=== PATIENT | female | born 1965 | race Caucasian/White ===

== ENCOUNTER 2018-09-19 23:54 | Emergency (ER) | payer SELFPAY ==
[~2018-09-19] VITALS: Ht 157.5 cm; Wt 108.8 kg
[~2018-09-19 23:54] MED LIST: ASPI-630 PO; ATOR20TA58 PO; DICY10CA3 PO; HYDR12.572 PO; LISI-334 PO; NEO/5DRO EACHEYE; OMEP40CA5 PO; RANI150C PO
[2018-09-20] MEDS ORDERED: MORPHINE SULFATE 4 MG/ML DISP.SYRIN. IV/SQ PRN (00:15)
[2018-09-20] MEDS ORDERED: PANTOPRAZOLE 40 MG TABLET. PO ONE (00:30)
[2018-09-20] MEDS ORDERED: SUCRALFATE 1 GM TABLET. PO ONE (00:30)
[2018-09-20 00:47] LABS: BASO # 0.1 x10^3/uL (0.0-0.2); BASO % 1 % (0-3); EOS # 0.1 x10^3/uL (0.0-0.7); EOS % 1 % (0-3); HEMATOCRIT 42.1 % (36.0-47.0); HEMOGLOBIN 14.4 g/dL (12.0-15.5); LYMPH # 3.2 x10^3/uL (1.0-4.8); LYMPH % 35 % (24-48); MEAN CORPUSCULAR HEMOGLOBIN 29 pg (25-35); MEAN CORPUSCULAR HGB CONC 34 g/dL (31-37); MEAN CORPUSCULAR VOLUME 85 fL (79-100); MONO # 0.5 x10^3/uL (0.0-1.1); MONO % 6 % (0-9); NEUT # 5.4 x10^3uL (1.8-7.7); NEUT % 58 % (31-73); PLATELET COUNT 264 x10^3/uL (140-400); RED BLOOD COUNT 4.93 x10^6/uL (3.50-5.40); RED CELL DISTRIBUTION WIDTH 13.4 % (11.5-14.5); WHITE BLOOD COUNT 9.2 x10^3/uL (4.0-11.0)
[2018-09-20] MEDS ORDERED: RANI150T2 PO (00:47)
[2018-09-20] MEDS ORDERED: LISI2.5T PO (00:47)
[2018-09-20] MEDS ORDERED: ERGO500027 PO (00:48)
[2018-09-20] MEDS ORDERED: LACT1CAP29 PO (00:49)
--- NOTE | 2018-09-20 00:50 | ED.ADGEN ---
Past History Past Medical History: High Cholesterol, Hypertension Past Surgical History: No Surgical History Alcohol Use: None Drug Use: None Adult General Chief Complaint Chief Complaint back pain HPI HPI 52 years old female with the multiple cardiac Risk factor presented to the emergency department with the back pain started an hour ago described as a spasms later on she started experiencing heartburn no chest pain no abdominal pain no fever no chills no shortness of breath Review of Systems Review of Systems Constitutional: Denies fever or chills [] Eyes: Denies change in visual acuity, redness, or eye pain [] HENT: Denies nasal congestion or sore throat [] Respiratory: Denies cough or shortness of breath [] Cardiovascular: No additional information not addressed in HPI [] GI: Denies abdominal pain, nausea, vomiting, bloody stools or diarrhea [] : Denies dysuria or hematuria [] Musculoskeletal: Denies joint pain [] Integument: Denies rash or skin lesions [] Neurologic: Denies headache, focal weakness or sensory changes [] Endocrine: Denies polyuria or polydipsia [] All other systems were reviewed and found to be within normal limits, except as documented in this note. Current Medications Current Medications Current Medications Medications (Trade) Dose Ordered Sig/Lindsay Start Time Stop Time Status Last Admin Dose Admin Morphine Sulfate (Morphine 4mg Syringe) 4 mg PRN Q15MIN PRN 09/20/18 00:15 09/21/18 00:14 Cancel Multi-Ingredient Mouthwash/Gargle (Gi Cocktail) 20 ml 1X ONCE 09/20/18 01:00 09/20/18 01:01 DC 09/20/18 00:39 20 ML Pantoprazole Sodium (Protonix) 40 mg 1X ONCE 09/20/18 00:30 09/20/18 00:31 DC 09/20/18 00:38 40 MG Sucralfate (Carafate) 1 gm 1X ONCE 09/20/18 00:30 09/20/18 00:31 DC 09/20/18 00:38 1 GM Allergies Allergies Allergies Coded Allergies Type Severity Reaction Last Updated Verified Penicillins Allergy Severe Swelling 01/27/16 Yes hydrocodone Allergy Severe 09/20/18 Yes morphine Allergy Severe 09/20/18 Yes codeine Allergy Intermediate Anxiety 01/27/16 Yes Physical Exam Physical Exam Constitutional: Well developed, well nourished, no acute distress, non-toxic appearance. [] HENT: Normocephalic, atraumatic, bilateral external ears normal, oropharynx moist, no oral exudates, nose normal. [] Eyes: PERRLA, EOMI, conjunctiva normal, no discharge. [] Neck: Normal range of motion, no tenderness, supple, no stridor. [] Cardiovascular:Heart rate regular rhythm, no murmur [] Lungs & Thorax: Bilateral breath sounds clear to auscultation [] Abdomen: Bowel sounds normal, soft, no tenderness, no masses, no pulsatile masses. [] Skin: Warm, dry, no erythema, no rash. [] Back: No tenderness, no CVA tenderness. [] Extremities: No tenderness, no cyanosis, no clubbing, ROM intact, no edema. [] Neurologic: Alert and oriented X 3, normal motor function, normal sensory function, no focal deficits noted. [] Psychologic: Affect normal, judgement normal, mood normal. [] Current Patient Data Lab Results Laboratory Tests Test 09/20/18 00:23 White Blood Count 9.2 x10^3/uL (4.0-11.0) Red Blood Count 4.93 x10^6/uL (3.50-5.40) Hemoglobin 14.4 g/dL (12.0-15.5) Hematocrit 42.1 % (36.0-47.0) Mean Corpuscular Volume 85 fL (79-100) Mean Corpuscular Hemoglobin 29 pg (25-35) Mean Corpuscular Hemoglobin Concent 34 g/dL (31-37) Red Cell Distribution Width 13.4 % (11.5-14.5) Platelet Count 264 x10^3/uL (140-400) Neutrophils (%) (Auto) 58 % (31-73) Lymphocytes (%) (Auto) 35 % (24-48) Monocytes (%) (Auto) 6 % (0-9) Eosinophils (%) (Auto) 1 % (0-3) Basophils (%) (Auto) 1 % (0-3) Neutrophils # (Auto) 5.4 x10^3uL (1.8-7.7) Lymphocytes # (Auto) 3.2 x10^3/uL (1.0-4.8) Monocytes # (Auto) 0.5 x10^3/uL (0.0-1.1) Eosinophils # (Auto) 0.1 x10^3/uL (0.0-0.7) Basophils # (Auto) 0.1 x10^3/uL (0.0-0.2) Sodium Level 138 mmol/L (136-145) Potassium Level 3.7 mmol/L (3.5-5.1) Chloride Level 99 mmol/L (98-107) Carbon Dioxide Level 29 mmol/L (21-32) Anion Gap 10 (6-14) Blood Urea Nitrogen 15 mg/dL (7-20) Creatinine 1.0 mg/dL (0.6-1.0) Estimated GFR (Cockcroft-Gault) 58.5 BUN/Creatinine Ratio 15 (6-20) Glucose Level 108 mg/dL (70-99) H Calcium Level 9.2 mg/dL (8.5-10.1) Total Bilirubin 0.4 mg/dL (0.2-1.0) Aspartate Amino Transferase (AST) 14 U/L (15-37) L Alanine Aminotransferase (ALT) 21 U/L (14-59) Alkaline Phosphatase 82 U/L (46-116) Troponin I Quantitative < 0.017 ng/mL (0-0.055) Total Protein 7.7 g/dL (6.4-8.2) Albumin 3.7 g/dL (3.4-5.0) Albumin/Globulin Ratio 0.9 (1.0-1.7) L Lipase 305 U/L (73-393) EKG EKG T-wave inversion in inferior leads[] Radiology/Procedures Radiology/Procedures [] Course & Med Decision Making Course & Med Decision Making Pertinent Labs and Imaging studies reviewed. (See chart for details) Since the patient has multiple cardiac risk factor she'll be admitted to [facility] to r/o acute coronary syndrome [] Final Impression Final Impression [] Problems: (1) Back pain Qualifiers: Qualified Codes: M54.6 - Pain in thoracic spine Dragon Disclaimer Dragon Disclaimer This electronic medical record was generated, in whole or in part, using a voice recognition dictation system. ANGIE URENA MD Sep 20, 2018 00:50
--- NOTE | 2018-09-20 00:56 | EKG ---
[address] [address] Test Date: 2018-09-20 Test Time: 00:15:28 Pat Name: YENIFER CHOWDHURY Department: Room: Gender: F Rehab Trainer: : 1965 Requested By: ANGIE URENA Order Number: [id number] Reading MD: Young West Measurements Intervals [place] Rate: 75 P: 133 ME: 140 QRS: 141 QRSD: 80 T: -19 QT: 384 QTc: 431 Interpretive Statements SINUS RHYTHM LOW LIMB LEAD VOLTAGE Electronically Signed On 09-21-2018 9:10:54 REFINERY OPERATOR ALKYLATION by Young West
[2018-09-20 00:59] LABS: ALBUMIN 3.7 g/dL (3.4-5.0); ALBUMIN/GLOBULIN RATIO 0.9 (1.0-1.7); CALCIUM 9.2 mg/dL (8.5-10.1); GFR 58.5; POTASSIUM 3.7 mmol/L (3.5-5.1); TOTAL BILIRUBIN 0.4 mg/dL (0.2-1.0); TOTAL PROTEIN 7.7 g/dL (6.4-8.2)
[2018-09-20] MEDS ORDERED: LIDO:MAALOX 1:1 20 ML SINGLE DOSE. PO ONE (01:00)
[2018-09-20 01:30] VITALS: BP 155/79
[2018-09-20] MEDS ORDERED: NITROGLYCERIN SUBLINGUAL 0.4 MG BOTTLE OF 25. SL PRN (01:30)
[2018-09-20] MEDS ORDERED: ONDANSETRON PF 4 MG/2 ML VIAL. IV PRN (01:30)
[2018-09-20] MEDS ORDERED: ASPIRIN 81 MG TAB.CHEW PO ONE (02:00)
--- NOTE | 2018-09-22 11:56 | EKG ---
[address] [address] Test Date: 2018-09-20 Test Time: 00:50:25 Pat Name: YENIFER CHOWDHURY Department: Room: Gender: F Dress Fitter: : 1965 Requested By: ANGIE URENA Order Number: [id number] Reading MD: Roman Ferreira Measurements Intervals [place] Rate: 74 P: 36 CA: 156 QRS: 24 QRSD: 80 T: -1 QT: 396 QTc: 440 Interpretive Statements SINUS RHYTHM LOW LIMB LEAD VOLTAGE NONSPECIFIC ST-T WAVE CHANGES. Electronically Signed On 09-26-2018 10:27:50 APRON MAN by Roman Ferreira
== END 2018-09-20 01:35 | disposition left against medical advice (07) ==
LOC: ER 09-20 00:02
DX: M54.6 Pain in thoracic spine (principal); E78.00 Pure hypercholesterolemia, unspecified; I10 Essential (primary) hypertension; Z88.0 Allergy status to penicillin; Z88.5 Allergy status to narcotic agent
CPT/HCPCS: 36415; 80053; 83690; 84484; 85025; 85379; 93005; 99284

== ENCOUNTER 2020-09-07 07:41 | Inpatient (IN) | payer SELFPAY ==
[~2020-09-07] VITALS: Ht 157.5 cm; Wt 103.2 kg
[~2020-09-07 07:41] MED LIST changes: +ERGO500027 PO; +LACT1CAP29 PO; -LISI-334 PO; +LISI2.5T PO; +LISI20TA18 PO; +OMEP40CA45 PO; -OMEP40CA5 PO; +RANI150T2 PO
[2020-09-07] MEDS ORDERED: IOHEXOL 350 MG/ML 100 ML VIAL. IV ONE ×2 (08:00)
--- NOTE | 2020-09-07 08:10 | PHYS DOC ---
Past History Past Medical History: Diabetes, GERD, High Cholesterol, Hypertension Past Surgical History: No Surgical History Alcohol Use: None Drug Use: None General Adult EDM: Chief Complaint: HEADACHE HPI: HPI: Patient is a 54-year-old female coming in for headache. Also had about a 10 to 15-minute episode of left eye vision loss. Patient states her vision was black but she was see flashing. No pain in the eye itself. Says vision is back to normal now. Usually wears glasses. Complaining of diffuse generalized headache. Has a history of headaches and migraines but does not usually have vision loss. Denies any recent illness, temporal pain, fevers, or neck pain. Has nausea without vomiting. States she otherwise has been well. Has a history of hypertension and prediabetes. Review of Systems: Review of Systems: All other systems within normal limits except for as noted in the HPI Current Medications: Current Meds: Current Medications Medications (Trade) Dose Ordered Sig/Lindsay Start Time Stop Time Status Last Admin Dose Admin Iohexol (Omnipaque 350 Mg/ml) 100 ml 1X ONCE 09/07/20 08:00 09/07/20 08:01 UNV Allergies: Allergies: Allergies Coded Allergies Type Severity Reaction Last Updated Verified Penicillins Allergy Severe Swelling 01/27/16 Yes hydrocodone Allergy Severe 09/20/18 Yes morphine Allergy Severe 09/20/18 Yes codeine Allergy Intermediate Anxiety 01/27/16 Yes Physical Exam: PE: Constitutional: Well developed, well nourished, no acute distress, non-toxic appearance. [] HENT: Normocephalic, atraumatic, bilateral external ears normal, nose normal. [] Eyes: PERRLA, conjunctiva normal, no discharge. [] Neck: No rigidity, supple, no stridor. [] Cardiovascular: Regular rate and rhythm, brisk cap refill [] Lungs & Thorax: Non labored symmetric respirations, no tachypnea or respiratory distress [] Abdomen: Soft, nondistended. Skin: Warm, dry, no erythema, no rash. [] Back: Unremarkable Extremities: No deformities, range of motion grossly intact, no lower extremity edema [] Neurologic: Alert and oriented X 3, no focal deficits noted. [] Psychologic: Affect normal, judgement normal, mood normal. [] Current Patient Data: Vital Signs: Vital Signs Date Time Temp Pulse Resp B/P (MAP) Pulse Ox O2 Delivery O2 Flow Rate FiO2 09/07/20 07:52 97.8 79 18 135/82 (99) 97 EKG: EKG: Sinus rhythm, heart rate 76 bpm, normal axis, no ST elevation or depression, no ectopy. [] Radiology/Procedures: Radiology/Procedures: CT arteriogram of the carotid arteries, CT arteriogram of the brain. HISTORY: Left vision loss CT arteriogram carotid arteries CT arteriogram was done using 98 mL Omnipaque 350 contrast. Sagittal and coronal MIP images were reconstructed. There is a prominent bullous lesion in the medial right upper lobe. The 5 mm nodule on image #166 in the right upper lobe. Fleischner Society guidelines recommend an optional one-year follow-up for high risk individuals. There are calcified granulomas bilaterally. The origins the great vessels at the aortic arch are normal. There are normal vertebral arteries. Both vertebral supply flow to the basilar artery. There is minimal plaque at the carotid bifurcations on each side without significant stenosis. There is a cyst possible small ulcerated plaque proximal internal carotid artery on the right side, there is a possible small ulcerated plaque at the proximal internal carotid artery on the left side. Thyroid is homogeneous. There is no upper mediastinal adenopathy. There is degenerative disc disease in the mid and lower cervical spine. There is spurring at C4-5 and C5-6 with foraminal narrowing. There is facet arthritis at C3-4 with mild subluxation. IMPRESSION: 1. Mild plaque the carotid bifurcations without significant stenosis. 2. Possible small ulcerated plaques of the proximal internal carotid arteries. 3. Normal vertebral arteries. 4. Prominent bullous lesion in the medial right upper lobe. 5. Small pulmonary nodules. 6. Degenerative changes in the cervical spine. End impression CT arteriogram of the brain CT arteriogram of the brain was done following CT arteriogram the carotid arteries. There is a normal basilar artery. Both posterior cerebral arteries have their origin on the basilar artery. There is no posterior fossa aneurysm. Intracranial internal carotid arteries are unremarkable without stenosis. Anteri or cerebral arteries are patent. There is a normal anterior communicating artery. Middle cerebral arteries are patent. There is no major vessel occlusion evident. There is no pathologic enhancement. Ventricles are normal in size. IMPRESSION: 1. No major vessel occlusion noted intracranially. 2. No intracranial aneurysm noted. 3. No mass or pathologic enhancement noted. [] Heart Score: Risk Factors: Risk Factors: DM, Current or recent (<one month) smoker, HTN, HLP, family history of CAD, obesity. Risk Scores: Score 0 - 3: 2.5% MACE over next 6 weeks - Discharge Home Score 4 - 6: 20.3% MACE over next 6 weeks - Admit for Clinical Observation Score 7 - 10: 72.7% MACE over next 6 weeks - Early Invasive Strategies Course & Med Decision Making: Course & Med Decision Making Pertinent Labs and Imaging studies reviewed. (See chart for details) [] Dragon Disclaimer: Dragon Disclaimer: This electronic medical record was generated, in whole or in part, using a voice recognition dictation system. Departure Departure: Impression: Primary Impression: Amaurosis fugax of left eye Disposition: ADMITTED INPT THIS HOSP Admitting Physician: Andi Wilson Referrals: KIMBERLY HERR (PCP) MILTON MERCADO MD Sep 07, 2020 08:10
[2020-09-07 08:27] LABS: BASO # 0.1 x10^3/uL (0.0-0.2); BASO % 1 % (0-3); EOS # 0.1 x10^3/uL (0.0-0.7); EOS % 2 % (0-3); HEMATOCRIT 41.9 % (36.0-47.0); HEMOGLOBIN 13.9 g/dL (12.0-15.5); LYMPH # 3.1 x10^3/uL (1.0-4.8); LYMPH % 36 % (24-48); MEAN CORPUSCULAR HEMOGLOBIN 29 pg (25-35); MEAN CORPUSCULAR HGB CONC 33 g/dL (31-37); MEAN CORPUSCULAR VOLUME 87 fL (79-100); MONO # 0.5 x10^3/uL (0.0-1.1); MONO % 6 % (0-9); NEUT # 4.8 x10^3uL (1.8-7.7); NEUT % 56 % (31-73); PLATELET COUNT 264 x10^3/uL (140-400); RED BLOOD COUNT 4.82 x10^6/uL (3.50-5.40); WHITE BLOOD COUNT 8.7 x10^3/uL (4.0-11.0)
[2020-09-07 08:37] LABS: CALCIUM 8.7 mg/dL (8.5-10.1); POTASSIUM 3.7 mmol/L (3.5-5.1)
[2020-09-07 08:43] LABS: ALBUMIN 3.5 g/dL (3.4-5.0); ALBUMIN/GLOBULIN RATIO 0.9 (1.0-1.7); C REACTIVE PROTEIN 1.4 mg/L (0-3.3); MAGNESIUM 1.8 mg/dL (1.8-2.4); TOTAL BILIRUBIN 0.4 mg/dL (0.2-1.0); TOTAL PROTEIN 7.2 g/dL (6.4-8.2)
[2020-09-07] MEDS ORDERED: IV NORMAL SALINE 1,000ML 1,000 ML IV ONE (08:45)
[2020-09-07] MEDS ORDERED: diphenhydrAMINE 50 MG/ML VIAL IVP ONE (08:45)
[2020-09-07] MEDS ORDERED: PROCHLORPERAZINE 10 MG/2 ML VIAL. IV ONE (08:45)
--- NOTE | 2020-09-07 08:53 | EKG ---
[address] [address] Test Date: 2020-09-07 Test Time: 08:13:22 Pat Name: YENIFER CHOWDHURY Department: Room: Gender: F Motion Picture Photographer: PATRICE : 1965 Requested By: MILTON MERCADO Order Number: [id number] Reading MD: Young West Measurements Intervals [place] Rate: 76 P: 38 AL: 154 QRS: 28 QRSD: 84 T: 0 QT: 384 QTc: 436 Interpretive Statements SINUS RHYTHM LOW LIMB LEAD VOLTAGE Electronically Signed On 09-09-2020 10:05:20 CUSTOMER SERVICE SUPERVISOR by Young West
--- NOTE | 2020-09-07 09:35 | RAD ---
CT arteriogram of the carotid arteries, CT arteriogram of the brain. HISTORY: Left vision loss CT arteriogram carotid arteries CT arteriogram was done using 98 mL Omnipaque 350 contrast. Sagittal and coronal MIP images were alexsander nstructed. There is a prominent bullous lesion in the medial right upper lobe. The 5 mm nodule on elba ge #166 in the right upper lobe. Fleischner Society guidelines recommend an optional one-year follow- up for high risk individuals. There are calcified granulomas bilaterally. The origins the great vessels at the aortic arch are normal. There are normal vertebral arteries. Bot h vertebral supply flow to the basilar artery. There is minimal plaque at the carotid bifurcations on each side without significant stenosis. There is a cyst possible small ulcerated plaque proximal int ernal carotid artery on the right side, there is a possible small ulcerated plaque at the proximal in ternal carotid artery on the left side. Thyroid is homogeneous. There is no upper mediastinal adenopa thy. There is degenerative disc disease in the mid and lower cervical spine. There is spurring at C4- 5 and C5-6 with foraminal narrowing. There is facet arthritis at C3-4 with mild subluxation. IMPRESSION: 1. Mild plaque the carotid bifurcations without significant stenosis. 2. Possible small ulcerated plaques of the proximal internal carotid arteries. 3. Normal vertebral arteries. 4. Prominent bullous lesion in the medial right upper lobe. 5. Small pulmonary nodules. 6. Degenerative changes in the cervical spine. End impression CT arteriogram of the brain CT arteriogram of the brain was done following CT arteriogram the carotid arteries. There is a normal basilar artery. Both posterior cerebral arteries have their origin on the basilar artery. There is n o posterior fossa aneurysm. Intracranial internal carotid arteries are unremarkable without stenosis. Anterior cerebral arteries are patent. There is a normal anterior communicating artery. Middle cereb ral arteries are patent. There is no major vessel occlusion evident. There is no pathologic enhanceme nt. Ventricles are normal in size. IMPRESSION: 1. No major vessel occlusion noted intracranially. 2. No intracranial aneurysm noted. 3. No mass or pathologic enhancement noted. PQRS Compliance Statement: One or more of the following individualized dose reduction techniques were utilized for this examinat ion: 1. Automated exposure control 2. Adjustment of the mA and/or kV according to patient size 3. Use of iterative reconstruction technique Electronically signed by: Marcus Shelton MD (09/07/2020 9:33 AM) [facility]
[2020-09-07] MEDS ORDERED: ACETAMINOPHEN 325 MG TABLET PO PRN (10:15)
[2020-09-07] MEDS ORDERED: ONDANSETRON PF 4 MG/2 ML VIAL. IVP PRN (10:15)
[2020-09-07] MEDS ORDERED: CLOPIDOGREL BISULFATE 75 MG TABLET PO ONE (10:15)
--- NOTE | 2020-09-07 11:40 | NUR ---
PATIENT ARRIVED TO UNIT VIA EMS. PTS VS OBTAINED AND ARE STABLE PT IS OFFERED FOOD AND DRINK. DR LI NOTIFIED OF ADMISSION AND CONSULT FOR DR FERNANDEZ ORDERED. WILL CONTINUE TO MONITOR.
--- NOTE | 2020-09-07 12:11 | HP ---
ADMIT DATE: 09/07/2020 ATTENDING PHYSICIAN: Dr. Li. CHIEF COMPLAINT: Headache and visual loss. HISTORY OF PRESENT ILLNESS: The patient is a 54-year-old female who has been fairly healthy and active. This morning, she had a 15-minute episode of loss of vision in the left eye associated nonspecific headache. She states that the vision was black. She was also seeing flashing, no pain in the eye itself. No recent trauma. After coming to the ED, the vision is back to normal now. She usually wears glasses. The workup in the ED showed a negative CT of the head for strokes. CT angiogram was done, showed mild plaquing in the carotid bifurcation without significant stenosis, small ulcerated plaques of the proximal internal carotids, normal vertebral arteries, prominent bullous lesion in the right middle and upper lobe in the lungs, some pulmonary nodules, no other significant findings. I suggested a dose of Plavix. She is admitted then with classic findings of amaurosis fugax of the left eye. In addition, she will have a formal Neurology consultation. PAST MEDICAL HISTORY: Significant for essential hypertension, prediabetes. CURRENT MEDICATIONS: Reviewed. Medication list is on the chart. She was taking aspirin, blood pressure meds and statin drug. ALLERGIES: SHE HAS ALLERGIES TO PENICILLIN, CODEINE, HYDROCODONE AND MORPHINE. SOCIAL HISTORY: She is a nonsmoker, nondrinker. FAMILY HISTORY: Mom of complications of lung cancer at age 56. She was a heavy smoker. Father of coronary artery disease at age 68. She is . She follows up at the [facility] in [place]. She is a full blooded [facility]. REVIEW OF SYSTEMS: Significant for the issues that brought her to the hospital. There is no recent COVID exposure, fevers, chills, chest pain or palpitations. All other systems reviewed and turned to be negative. PHYSICAL EXAMINATION: GENERAL: When I saw her, this is a very pleasant, middle-aged female. INITIAL VITAL SIGNS: Showed a blood pressure of 136/82, pulse is 80 and regular. She was afebrile, oxygen saturation 97% on room air. HEENT: Head is without trauma. Pupils are reactive. Sclerae nonicteric. I did examine her fundus. The funduscopic exam benign. I did not see any evidence of Hollenhorst plaques. NECK: Supple. I do not appreciate any bruits or thyromegaly. No stridor. LUNGS: Otherwise clear. CARDIOVASCULAR: Showed regular heart tones. Normal S1, S2. No gallops or murmurs. Peripheral pulses are palpable and full. ABDOMEN: Obese, protuberant. No organomegaly. Bowel sounds are hypoactive. There is no guarding or rebound tenderness. EXTREMITIES: Showed no cyanosis or edema. NEUROLOGIC FINDINGS: Her fruit grader operator were symmetrical and intact. Tendon reflexes unremarkable and symmetrical. Her speech was fluent. Her visual acuity had returned. There were no focal visual field cuts. SKIN: Otherwise warm and dry. Her speech was fluent. PERTINENT LABORATORY AND X-RAY STUDIES: CT angiogram as noted. Her CBC and chemistry panel done in the ED showed normal hemoglobin 13.9 g/dL, white count 8700. Electrolytes, BUN and creatinine, blood sugar all within normal range. Nonfasting blood sugar 111 mg/dL. Transaminases were normal. ASSESSMENT: 1. A 54-year-old female with classic symptoms of left-sided amaurosis fugax suggesting an embolic lesion involving the central retinal artery. Symptoms lasted about 15 minutes have since resolved. 2. Plaquing and ulcerations, nonspecific of her carotid arterial system. 3. Essential hypertension. 4. Hyperlipidemia. 5. Borderline diabetes mellitus. PLAN: 1. Observation status. 2. Plavix. 3. Formal neurologic consultation. 4. Continue home meds. NATALI LI MD DR: ALLYN/pao JOB#: [id number] / [id number]
[2020-09-07 12:25] VITALS: BP 133/85
--- NOTE | 2020-09-07 13:49 | NUR ---
patient is discharged home with self care. istructions to increase asa to [address] covington. pt is anxious to be discharged. iv is removed tele monitor d/c'd. patient ambulated off of unit accompanied by staff. will continue to monitor.
--- NOTE | 2020-09-07 16:02 | DS ---
DATE OF DISCHARGE: 09/07/2020 ATTENDING PHYSICIAN: Dr. Li. FINAL DISCHARGE DIAGNOSES: 1. Amaurosis fugax. 2. Transient ischemic attack, resolved. 3. Hypertension. 4. Type 2 diabetes. 5. Hyperlipidemia. HISTORY AND PHYSICAL: This pleasant 54-year-old female had an episode of amaurosis fugax, loss of vision in the left eye for about 15 minutes. Symptoms resolved. She was admitted for further evaluation, observation and Neurology consultation. PHYSICAL EXAMINATION: Please see the dictated note. PERTINENT LABORATORY AND X-RAY STUDIES: On the database. They were within normal range. The CT angiogram and CT of the brain showed no acute strokes. Minimal ulceration and plaquing of the carotid system without any distinct stenosis. COURSE IN THE HOSPITAL: The patient was admitted. Full neurologic consultation was obtained. Dr. Mayo saw the patient. She was given initially a dose of Plavix. For now, he would like to increase the dose of aspirin to 325 one daily. Continuation of her hypertension and cholesterol meds. She will followup as an outpatient. She wanted to go home. She did not want to stay in the hospital, she was medically stable. Therefore, later on the same afternoon on the day of admission, the patient was discharged home with instructions for followup care through the [facility] in addition of aspirin 325 mg 1 daily. Her other home meds are unchanged. Please see the dictated H and P. She was discharged there from our hospital in stable condition with explicit instructions and followup care. NATALI LI MD DR: ALLYN/pao JOB#: [id number] / [id number]
--- NOTE | 2020-09-07 18:27 | CONS ---
DATE OF CONSULTATION: PULMONARY CONSULTATION REFERRING PHYSICIAN: Dr. Wilson. REASON FOR CONSULTATION: Left vision loss. HISTORY OF PRESENT ILLNESS: This is a 54-year-old right-handed female who was admitted with a history of hypertension, pre-diabetic and hyperlipidemia, was admitted through Emergency Room after she presented with a chief complaint of 1-minute left vision loss. After arrival to Emergency Room, she started having global headaches. She denies slurred speech. She denies dysarthria, dysphagia, weakness or paresthesia. The patient never had any similar episode in the past. DIAGNOSTIC DATA: Initial nonenhanced head CT scan revealed no evidence of acute intracranial process, but CT angio of the brain and neck revealed normal vessels in the posterior fossa. No evidence of aneurysm, but shows mild plaque of the carotid bifurcation without significant stenosis and possible small ulcerated plaques of the bilateral proximal internal carotid arteries. PAST MEDICAL HISTORY: Significant for obesity, pre-diabetic mellitus, hypertension, and hyperlipidemia. FAMILY HISTORY: Mother was a smoker and she from lung cancer. Father had Parkinson's disease and coronary artery disease. He at age of 68. SOCIAL HISTORY: The patient is . She has 2 children. She denies smoking, alcohol drinking, or illicit drug use. She works. CURRENT MEDICATIONS: Aspirin 81 mg p.o. daily, Lipitor 20 mg p.o. daily, vitamin D, hydrochlorothiazide, lisinopril 2.5 mg daily, ranitidine 150 mg p.o. daily. ALLERGIES: PENICILLIN, CODEINE, HYDROCODONE, AND MORPHINE. REVIEW OF SYSTEMS: A 10-point review of systems as mentioned above in history of present illness. PHYSICAL EXAMINATION: GENERAL: Obese female, not in acute distress. She weighs 103.2 kilos. VITAL SIGNS: Blood pressure 133/85, respiratory rate 20, pulse is 73, oxygen saturation is 95%, temperature 97.6. HEENT: Normocephalic, atraumatic, otherwise unremarkable. NECK: Supple. Negative for carotid bruit, lymphadenopathy or thyromegaly. LUNGS: Clear to A and P. CARDIOVASCULAR: Regular rate and rhythm, normal S1, S2. There is no S3, S4 or murmur. ABDOMEN: Soft. Bowel sounds positive. EXTREMITIES: Negative for cyanosis, clubbing or edema. NEUROLOGICAL EXAM: Mental Status: The patient is alert and oriented x3. Speech is fluent. There is no language dysfunction. Memory, judgment, and abstracting thinking are normal. The patient denies hallucination or delusion. CRANIAL NERVES: Visual mars are full. The pupils are reactive to light and accommodation. The extraocular movements are intact. There is no nystagmus. There are no facial motor or sensory deficits. Hearing is intact bilaterally. The palate is elevated symmetrically. Sternocleidomastoid muscles are powerful bilaterally. The patient shrugs her shoulders symmetrically, protrudes her tongue in the midline without fasciculation or atrophy. MOTOR: No focal muscle bulk wasting. The tone is normal. The strength is 5/5 throughout. SENSORY EXAMINATION: Revealed normal pinprick, light touch, vibratory and position senses. Deep tendon reflexes were symmetric and hypoactive without pathology responses. Gait and coordination are normal. LABORATORY DATA: CBC revealed white blood cells of 8.7 thousand, hemoglobin 13.9, hematocrit 87, platelet count 264,000. Chemistry revealed sodium of 138, potassium 3.7, chloride 102, CO2 is 29, BUN 16, creatinine 1, glucose 111, calcium 8.7, BUN as mentioned 16 and creatinine 1, liver enzymes are not elevated. IMPRESSION: 1. Possible transient ischemic attack, presented with left eye amaurosis fugax, lasted 1 minute with multiple risk factors including obesity, pre-diabetic, hypertension, hyperlipidemia and small ulcerated plaques of the carotid bifurcation without significant stenosis. 2. Multiple medical problems include obesity, hypertension, hyperlipidemia, and pre-diabetic. RECOMMENDATIONS: Change aspirin as the patient taking baby aspirin daily. We will change aspirin to regular aspirin at 325 mg unless there is a contraindication. In case of recurrent similar symptoms with TIA, we will start the patient to Plavix. M Leonila FERNANDEZ MD DR: ERNESTO/pao JOB#: [id number] / [id number]
== END 2020-09-07 13:59 | disposition home or self-care (01) | DRG 123 ==
LOC: ER 07:41 → 1 SOUTH 10:05 → ER 11:38
PROVIDERS: ADMIT Hospitalist; ATTEND Hospitalist
DX: G45.3 Amaurosis fugax (principal); Z68.41 Body mass index [BMI] 40.0-44.9, adult; E11.9 Type 2 diabetes mellitus without complications; E66.9 Obesity, unspecified; E78.00 Pure hypercholesterolemia, unspecified; E78.5 Hyperlipidemia, unspecified; I10 Essential (primary) hypertension; M47.812 Spondylosis without myelopathy or radiculopathy, cervical region; Z79.82 Long term (current) use of aspirin; Z80.1 Family history of malignant neoplasm of trachea, bronchus and lung; Z82.0 Family history of epilepsy and other diseases of the nervous system; Z82.49 Family history of ischemic heart disease and other diseases of the circulatory system; Z87.891 Personal history of nicotine dependence; Z88.8 Allergy status to other drugs, medicaments and biological substances
CPT/HCPCS: 36415; 70496; 70498; 80053; 83735; 85025; 86140; 93005; 96374; 96375; J0780; J1200; Q9967; 99285-25; J7030

== ENCOUNTER 2021-10-03 11:02 | Emergency (ER) | payer OTHER ==
[~2021-10-03] VITALS: Ht 157.5 cm; Wt 103.2 kg
[2021-10-03 11:02] VITALS: BP 150/85
[~2021-10-03 11:02] MED LIST changes: -LACT1CAP29 PO; +LACT1CAP37 PO; -LISI2.5T PO; +LISI2.5T12 PO; -OMEP40CA45 PO; +OMEP40CA7 PO
--- NOTE | 2021-10-03 12:05 | PHYS DOC ---
Past History Past Medical History: Diabetes, GERD, High Cholesterol, Hypertension (KIKA CORONA APRN) Past Surgical History: No Surgical History (KIKA CORONA APRN) Alcohol Use: None Drug Use: None (KIKA CORONA APRN) General Adult EDM: Chief Complaint: BACK PAIN OR INJURY HPI: HPI: Patient is a 55-year-old female presents with upper back pain after having a coughing fit. Patient states she had a sharp pain that lasted about 5 seconds in between her shoulder blades. Patient is currently on antibiotics for a sinus infection. Denies chest pain, denies shortness of breath, denies pain. Has history of hypertension.. (KIKA CORONA APRN) Review of Systems: Review of Systems: ROS At least 10 ROS systems have been reviewed and are negative except as documented in the HPI. General: Negative except as outlined in HPI above. Skin: Negative except as outlined in HPI above. HEENT: Negative except as outlined in HPI above. Neck: Negative except as outlined in HPI above. Respiratory: Negative except as outlined in HPI above.. Cardiovascular: Negative except as outlined in HPI above. Abdomen: Negative except as outlined in HPI above. : Negative except as outlined in HPI above. Back/MSK: Negative except as outlined in HPI above. Neuro: Negative except as outlined in HPI above. Psych: Negative except as outlined in HPI above. (KIKA CORONA APRN) Allergies: Allergies: Allergies Coded Allergies Type Severity Reaction Last Updated Verified Penicillins Allergy Severe Swelling 01/27/16 Yes hydrocodone Allergy Severe 09/20/18 Yes morphine Allergy Severe 09/20/18 Yes codeine Allergy Intermediate Anxiety 01/27/16 Yes (KIKA CORONA APRN) Physical Exam: PE: Constitutional: Well developed, well nourished, no acute distress, non-toxic appearance. [] HENT: Normocephalic, atraumatic, bilateral external ears normal, oropharynx moist, no oral exudates, nose normal. [] Eyes: PERRLA, EOMI, conjunctiva normal, no discharge. [] Neck: Normal range of motion, no tenderness, supple, no stridor. [] Cardiovascular:Heart rate regular rhythm, no murmur [] Lungs & Thorax: Bilateral breath sounds clear to auscultation [] Abdomen: Bowel sounds normal, soft, no tenderness, no masses, no pulsatile masses. [] Skin: Warm, dry, no erythema, no rash. [] Back: No tenderness, no CVA tenderness. [] Extremities: No tenderness, no cyanosis, no clubbing, ROM intact, no edema. [] Neurologic: Alert and oriented X 3, normal motor function, normal sensory func tion, no focal deficits noted. [] Psychologic: Affect normal, judgement normal, mood normal. [] (KIKA CORONA APRN) Current Patient Data: Vital Signs: Vital Signs Date Time Temp Pulse Resp B/P (MAP) Pulse Ox O2 Delivery O2 Flow Rate FiO2 10/03/21 11:02 93 16 150/85 (106) 97 Room Air (KIKA CORONA APRN) EKG: EKG: [] (KIKA CORONA APRN) Radiology/Procedures: Radiology/Procedures: [] (KIKA CORONA APRN) Heart Score: C/O Chest Pain: No Risk Factors: Risk Factors: DM, Current or recent (<one month) smoker, HTN, HLP, family history of CAD, obesity. Risk Scores: Score 0 - 3: 2.5% MACE over next 6 weeks - Discharge Home Score 4 - 6: 20.3% MACE over next 6 weeks - Admit for Clinical Observation Score 7 - 10: 72.7% MACE over next 6 weeks - Early Invasive Strategies (KIKA CORONA APRN) Course & Med Decision Making: Course & Med Decision Making Pertinent Labs and Imaging studies reviewed. (See chart for details) [] 55-year-old female presents with upper back pain between her shoulder blades that occurred when she was having a coughing fit. Pain only lasted about 5 seconds and then resolved. Patient denies any pain while in the ER. No chest pain, no shortness of breath. Patient is hemodynamically stable. Patient's sudden pain most likely is related to her coughing violently. Advised patient to follow-up with her PCP. Discussed return precautions in length. Patient verbalizes understanding of discharge instructions. (KIKA CORONA APRN) Dragon Disclaimer: Dragon Disclaimer: This electronic medical record was generated, in whole or in part, using a voice recognition dictation system. (KIKA CORONA APRN) Attending Co-Sign The patient was seen and interviewed as well as examined at the bedside. The chart was reviewed. The case was discussed. Agree with the plan of care. (GUDELIA KRUEGER DO) Departure Departure: Impression: Primary Impression: Back pain Disposition: 01 HOME / SELF CARE / HOMELESS Condition: STABLE Referrals: KIMBERLY HERR (PCP) Patient Instructions: Back Pain in Additional Instructions: You are seen in the emergency room to be evaluated after you had brief back p ain. You stated the your pain resolved. Please return to the emergency room if you have worsening symptoms or concerns such as chest pain, shortness of breath. Otherwise follow-up with your PCP. EMERGENCY DEPARTMENT GENERAL DISCHARGE INSTRUCTIONS Thank you for coming to [facility] (ED) today and trusting us with you care. We trust that you had a positivie experience in our Emergency Department. If you wish to speak to the department management, you may call the director at [phone]. YOUR FOLLOW UP INSTRUCTIONS ARE FOLLOWS: 1. Do you have a private Doctor? If you do not have a private doctor, please ask for a resource list of physicians or clinics that may be able to assist you with follow up care. 2. The Emergency Physician has interpreted your x-rays. The X-Ray specialist will also review them. If there is a change in the findings, you will be notified in 48 hours when at all possible. 3. A lab test or culture has been done, your results will be reviewed and you will be notified if you need a change in treatment. ADDITIONAL INSTRUCTIONS AND INFORMATION: 1. Your care today has been supervised by a physician who is specially trained in emergency care. Many problems require more than one evaluation for a complete diagnosis and treatment. We recommend that you schedule your follow up appointment as recommended to ensure complete treatment of you illness or injury. If you are unable to obtain follow up care and continue to have a problem, or if your condition worsens, we recommend that you return to the ED. 2. We are not able to safely determine your condition over the phone nor are we able to give sound medical advice over the phone. For these safety reasons, if you call for medical advice we will ask you to come to the ED for further evaluation. 3. If you have any questions regarding these discharge instructions please call the ED at [phone]. SAFETY INFORMATION: In the interest of safety, wellness, and injury prevention; we encourage you to wear your sealbelt, if you smoke; quite smoking, and we encourage family to use a protective helmet for bicycling and other sporting events that present an increased risk for head injury. IF YOUR SYMPTOMS WORSEN OR NEW SYMPTOMS DEVELOP, OR YOU HAVE CONCERNS ABOUT YOUR CONDITION; OR IF YOUR CONDITION WORSENS WHILE YOU ARE WAITING FOR YOUR FOLLOW UP APPOINTMENT; EITHER CONTACT YOUR PRIMARY CARE DOCTOR, THE PHYSICIAN WHOSE NAME AND NUMBER YOU WERE GIVEN, OR RETURN TO THE ED IMMEDIATELY. KIKA CORONA APRN Oct 03, 2021 12:05 GUDELIA KRUEGER DO Oct 04, 2021 08:56
== END 2021-10-03 12:12 | disposition home or self-care (01) ==
LOC: ER 11:02
DX: M54.6 Pain in thoracic spine (principal); E11.9 Type 2 diabetes mellitus without complications; K21.9 Gastro-esophageal reflux disease without esophagitis; E78.00 Pure hypercholesterolemia, unspecified; I10 Essential (primary) hypertension; Z88.0 Allergy status to penicillin; Z88.5 Allergy status to narcotic agent
CPT/HCPCS: 99281